=== PATIENT | male | born 1955 | race African-American/Black ===

== ENCOUNTER 2020-12-07 15:09 | Emergency (ER) | payer OTHER ==
[~2020-12-07] VITALS: Ht 177.8 cm; Wt 83.9 kg
[~2020-12-07 15:09] MED LIST: ABILIFY5 MG PO; LITHIUM CARBON300 MG; TRANXENE T-TAB7.5 MG; VISTARIL25 MG PO; WELLBUTRIN XL150 MG
[2020-12-07] MEDS ORDERED: LEVODOPA25 GM (15:31)
[2020-12-07] MEDS ORDERED: FLAGYL500MG PO (21:31)
[2020-12-07] MEDS ORDERED: CIPRO500 MG PO (21:31)
[2020-12-07] MEDS ORDERED: PROBIOTIC1 EAC2 PO (21:31)
== END 2020-12-07 21:40 | disposition home or self-care (01) ==
LOC: ER 15:09
DX: R10.11 Right upper quadrant pain (principal)